=== PATIENT | female | born 1935 | race Caucasian/White ===

== ENCOUNTER → 2022-07-18 | Outpatient (CLI) | payer MEDICARE, BC | LOC: RAD 09:26 | DX: M79.671 Pain in right foot (principal) ==

== ENCOUNTER 2023-10-13 10:42 | Emergency (ER) | payer MEDICARE, BC ==
[~2023-10-13 10:42] MED LIST: ACYCLOVIR800 MG PO; ASPIRIN 81M81 MG/TA2 PO; AZO D-MANNOSE500 MG PO; CALCIUM500 M1 PO; CELLUVISC OS; CENTRUM ADULTS1 EACH PO; CEPHALEXIN500 M1 PO; CLOPIDOGREL PO; DORZOLAMIDE HYD10 M1 OP; FLECAINIDE ACE100 MG PO; LEVO-T50 MCG PO; MANNOSE; PROBIOTIC1 EAC1 PO; TIMOLOL MALEATE10 M1 OD; VALACYCLOVIR500 MG PO; VITAMIN D250 MCG PO; VYZULTA5 ML OU; WOMENS PROBIOTIC PO; [UNRECOGNIZED DRUG - OTHER] OD; [UNRECOGNIZED DRUG - OTHER] OS; [UNRECOGNIZED DRUG - OTHER] OS
[2023-10-13] MEDS ORDERED: NS 60 ML IV ONE (11:07)
[2023-10-13] MEDS ORDERED: Iohexol 300 - 100 ML VIAL IV ONE (11:07)
[2023-11-15 19:51] LABS: ALBUMIN 3.9 g/dL (3.4-4.8); ALT/SGPT 16 U/L (0-55); AST-SGOT 21 U/L (5-34); CALCIUM 9.9 mg/dL (8.3-10.5); CARBON DIOXIDE 24 mmol/L (23-31); GLUCOSE 95 mg/dL (65-105); HEMATOCRIT 43.5 % (37.0-47.0); MEAN PLATELET VOLUME 10.8 fl (7.4-10.4); RED BLOOD COUNT 4.37 M/mm3 (4.10-5.30); RED CELL DISTRIBUTION WIDTH 12.3 % (11.5-14.5); SODIUM 136 mmol/L (136-145); TOTAL BILIRUBIN 0.5 mg/dL (0.2-1.2); TOTAL PROTEIN 6.7 g/dL (6.2-8.1); TROPONIN-I < 0.030 ng/mL (0.00-0.033); WHITE BLOOD COUNT 6.7 K/mm3 (4.8-10.8)
[2023-11-15 19:52] LABS: PARTIAL THROMBOPLASTIN TIME 24.4 SECONDS (21.0-32.0); PROTHROMBIN TIME 10.4 SECONDS (9.0-12.0)
[2023-11-15 19:54] LABS: URINE APPEARANCE CLEAR (CLEAR); URINE BILIRUBIN NEGATIVE (NEGATIVE); URINE BLOOD NEGATIVE (NEGATIVE); URINE COLOR YELLOW (YELLOW); URINE GLUCOSE NEGATIVE (NEGATIVE); URINE KETONE 1+ (NEGATIVE); URINE LEUKOCYTE ESTERASE NEGATIVE (NEGATIVE); URINE NITRATE NEGATIVE (NEGATIVE); URINE PROTEIN(semi-quant) NEGATIVE (NEGATIVE)
[2023-11-15 19:55] LABS: URINE WBC 0-1 /hpf (0-3)
== END 2023-10-13 14:00 | disposition other institution (70) ==
LOC: ED 10:42
PROVIDERS: Physician Assistant
DX: G45.9 Transient cerebral ischemic attack, unspecified (principal); I63.9 Cerebral infarction, unspecified; N39.0 Urinary tract infection, site not specified
CPT/HCPCS: Q9967

== ENCOUNTER 2023-12-20 19:45 | Emergency (ER) | payer MEDICARE, BC ==
[~2023-12-20] VITALS: Ht 170.2 cm; Wt 71.7 kg
[2023-12-20 20:12] LABS: BASO # 0.03 K/mm3 (0.02-0.10); EOS # 0.12 K/mm3 (0.04-0.40); EOS % 1.2 % (1.0-5.0); HEMATOCRIT 44.6 % (37.0-47.0); HEMOGLOBIN 15.2 g/dL (12.5-16.0); LYMPH# 1.73 K/mm3 (1.50-4.00); MEAN CELL VOLUME 97 fl (78-100); MEAN CORPUSCULAR HEMOGLOBIN 33 pg (27-31); MEAN CORPUSCULAR HGB CONC 34 g/dL (33-37); MEAN PLATELET VOLUME 10.2 fl (7.4-10.4); MONO # 1.04 K/mm3 (0.20-0.80); NEU # 6.82 K/mm3 (1.40-6.50); PLATELET COUNT 210 K/mm3 (130-400); RED BLOOD COUNT 4.58 M/mm3 (4.10-5.30); RED CELL DISTRIBUTION WIDTH 12.1 % (11.5-14.5); WHITE BLOOD COUNT 9.8 K/mm3 (4.8-10.8)
[2023-12-20 20:20] LABS: SODIUM 137 mmol/L (136-145)
[2023-12-20 20:21] LABS: ALBUMIN 4.2 g/dL (3.4-4.8)
[2023-12-20 20:22] LABS: CALCIUM 10.2 mg/dL (8.3-10.5)
[2023-12-20 20:23] LABS: TOTAL PROTEIN 7.1 g/dL (6.2-8.1)
[2023-12-20 20:24] LABS: CARBON DIOXIDE 23 mmol/L (23-31); GLUCOSE 67 mg/dL (65-105)
[2023-12-20 20:25] LABS: TOTAL BILIRUBIN 0.4 mg/dL (0.2-1.2)
[2023-12-20 20:28] LABS: AST-SGOT 23 U/L (5-34)
[2023-12-20 20:31] LABS: ALT/SGPT 21 U/L (0-55)
[2023-12-20 20:41] LABS: TROPONIN-I < 0.030 ng/mL (0.00-0.033)
[2023-12-20 21:41] LABS: URINE APPEARANCE CLEAR (CLEAR); URINE BILIRUBIN NEGATIVE (NEGATIVE); URINE BLOOD NEGATIVE (NEGATIVE); URINE COLOR YELLOW (YELLOW); URINE GLUCOSE NEGATIVE (NEGATIVE); URINE KETONE NEGATIVE (NEGATIVE); URINE LEUKOCYTE ESTERASE NEGATIVE (NEGATIVE); URINE NITRATE NEGATIVE (NEGATIVE); URINE PROTEIN(semi-quant) NEGATIVE (NEGATIVE); URINE WBC 0-1 /hpf (0-3)
[2023-12-20 22:50] VITALS: BP 179/79
== END 2023-12-20 22:50 | disposition home or self-care (01) ==
LOC: ED 19:45
PROVIDERS: Family Medicine
DX: R53.1 Weakness (principal)

== ENCOUNTER 2024-01-13 20:10 | Emergency (ER) | payer MEDICARE, BC ==
[2024-01-13] MEDS ORDERED: Acetaminophen 325 MG TAB PO ONE (22:15)
[2024-01-13 22:44] VITALS: BP 183/97
== END 2024-01-13 22:44 | disposition home or self-care (01) ==
LOC: ED 20:10
DX: S09.90XA Unspecified injury of head, initial encounter (principal); W18.30XA Fall on same level, unspecified, initial encounter; W22.8XXA Striking against or struck by other objects, initial encounter; Y99.0 Civilian activity done for income or pay